=== PATIENT | female | born 1960 | race Two or more races ===

== ENCOUNTER → 2018-04-12 | Outpatient (CLI) | payer OTHER ==
[2015-07-12 21:07] VITALS: BP 150/93
[~2018-04-12] MED LIST: CITA20TA6 PO; HYDR-3164 PO; LISI1TAB3 PO; METH4TAB2 PO; NAPR220T70 PO
--- NOTE | 2018-04-12 13:50 | RAD ---
Indication: Acute bilateral low back pain without sciatica. TECHNIQUE: 3 views of the lumbar spine COMPARISON: None FINDINGS: The lumbar spine is in normal anatomic alignment. 6 lumbar vertebral bodies suggesting transitional anatomy with lumbarization of S1. No compression deformities. Intervertebral disc space narrowing seen at L5-S1. Lower lumbar spine facet arthropathy. SI joints within normal limits. IMPRESSION: 1. Transitional anatomy with lumbarization of S1. 2. Mild multilevel degenerative disc disease with moderate disease at L5-S1 and lower lumbar spine facet arthropathy. Electronically signed by: Chemo Tomlin DO (04/12/2018 1:47 PM) [id number]
== END | disposition home or self-care (01) ==
LOC: RAD 13:04
PROVIDERS: ATTEND Nurse Practitioner Gerontology
DX: M51.37 Other intervertebral disc degeneration, lumbosacral region (principal); M48.07 Spinal stenosis, lumbosacral region; M12.88 Other specific arthropathies, not elsewhere classified, other specified site
CPT/HCPCS: 72100

== ENCOUNTER → 2018-05-16 | Outpatient (CLI) | payer OTHER ==
[2015-07-12 21:07] VITALS: BP 150/93
--- NOTE | 2018-05-16 17:27 | KCIC ---
Bilateral digital screening mammograms: Reason for examination: Routine screening. Comparison is made to previous studies dated 02/22/2014 and 12/29/2012. Interpretation was made with the benefit of CAD. The skin and nipples show no abnormalities. No abnormal axillary lymph nodes are seen. The breast parenchyma shows scattered fibroglandular density. (Breast density: Category B.) There are no dominant masses, suspicious calcifications or architectural distortions. A few scattered benign calcifications are present. Impression: No evidence of malignancy. Recommend routine screening. BI-RADS category 2: Benign "Our facility is accredited by the [employer] Mammography Program." This patient's information has been entered into a reminder system for the patient to be notified with the results of her examination and a target date for the next mammogram. Electronically signed by: Shelby Guerrero MD (05/16/2018 5:24 PM) [id number]
== END | disposition home or self-care (01) ==
LOC: KCIC MAMMO 13:06
PROVIDERS: ATTEND Family Medicine
DX: Z12.31 Encounter for screening mammogram for malignant neoplasm of breast (principal); R92.8 Other abnormal and inconclusive findings on diagnostic imaging of breast
CPT/HCPCS: 77067

== ENCOUNTER → 2018-08-28 | Outpatient (CLI) | payer OTHER ==
[2015-07-12 21:07] VITALS: BP 150/93
--- NOTE | 2018-08-28 17:04 | KCIC ---
3 view study of the right ankle Clinical indications: Right ankle pain after injury. FINDINGS: Lateral soft tissue swelling is seen. There is a small avulsion fracture of the distal fibular epiphysis. The mortise ankle joint is intact. Plantar spur of the calcaneus is seen. IMPRESSION: Small avulsion fracture of the distal right fibular epiphysis. Electronically signed by: Andrew Burnett MD (08/28/2018 5:01 PM) [id number]
== END | disposition home or self-care (01) ==
LOC: KCIC 11:39
PROVIDERS: ATTEND Nurse Practitioner Gerontology
DX: S82.832A Other fracture of upper and lower end of left fibula, initial encounter for closed fracture (principal); M77.31 Calcaneal spur, right foot; X58.XXXA Exposure to other specified factors, initial encounter; Y93.89 Activity, other specified; Y92.89 Other specified places as the place of occurrence of the external cause; Y99.8 Other external cause status
CPT/HCPCS: 73610

== ENCOUNTER → 2018-09-20 | Outpatient (CLI) | payer OTHER ==
[2015-07-12 21:07] VITALS: BP 150/93
--- NOTE | 2018-09-20 13:03 | KCIC ---
LUMBAR SPINE 2-3V 09/20/2018 12:00 AM Indication: Low back pain without sciatica COMPARISON: Lumbar spine radiograph April 12, 2018 TECHNIQUE: 3 views of the lumbar spine are provided. Findings: 5 nonrib-bearing lumbar type vertebral bodies are identified. There is minimal levoconvex curvature of the lumbar spine with apex levocurvature at L3-L4. There is minimal retrolisthesis of L2 on L3 and L3 on L4. There is mild disc height loss at L2-L3, stable with marginal osteophytosis and subcortical sclerosis. No acute fracture is identified. There is moderate to advanced facet arthropathy lower lumbar spine. There is moderate disc height loss at L5-S1 with cortical sclerosis. There is osseous neural foraminal stenosis at L4-L5 and L5-S1. Nonobstructive bowel gas pattern. Atherosclerotic changes of the abdominal aorta are present. Impression: Mild to moderate lumbar spondylosis. Minimal retrolisthesis of L2 on L3 and L3 on L4, stable. Electronically signed by: Carlee Graham MD (09/20/2018 1:00 PM) [id number]
== END | disposition home or self-care (01) ==
LOC: KCIC 11:08
PROVIDERS: ATTEND Nurse Practitioner Gerontology
DX: M47.816 Spondylosis without myelopathy or radiculopathy, lumbar region (principal); M48.07 Spinal stenosis, lumbosacral region; M53.86 Other specified dorsopathies, lumbar region; M25.78 Osteophyte, vertebrae; M12.88 Other specific arthropathies, not elsewhere classified, other specified site; I70.0 Atherosclerosis of aorta
CPT/HCPCS: 72100

== ENCOUNTER → 2018-11-07 | Outpatient (CLI) | payer OTHER ==
[2015-07-12 21:07] VITALS: BP 150/93
[~2018-11-07] MED LIST changes: +LISI1TAB23 PO; -LISI1TAB3 PO
[2018-11-07 13:41] LABS: ALBUMIN 3.6 g/dL (3.4-5.0); DIRECT BILIRUBIN 0.1 mg/dL (0.0-0.2); TOTAL BILIRUBIN 0.3 mg/dL (0.2-1.0); TOTAL PROTEIN 7.5 g/dL (6.4-8.2)
== END | disposition home or self-care (01) ==
LOC: LAB 12:22
PROVIDERS: ATTEND Podiatrist Foot & Ankle Surgery
DX: B35.1 Tinea unguium (principal)
CPT/HCPCS: 36415; 80076

== ENCOUNTER → 2019-11-21 | Outpatient (CLI) | payer OTHER ==
[2015-07-12 21:07] VITALS: BP 150/93
[2019-11-21 10:27] LABS: BASO % 0 % (0-3); EOS # 0.2 x10^3/uL (0.0-0.7); EOS % 3 % (0-3); HEMATOCRIT 44.5 % (36.0-47.0); HEMOGLOBIN 15.3 g/dL (12.0-15.5); LYMPH # 2.1 x10^3/uL (1.0-4.8); LYMPH % 28 % (24-48); MEAN CORPUSCULAR HEMOGLOBIN 29 pg (25-35); MEAN CORPUSCULAR HGB CONC 35 g/dL (31-37); MEAN CORPUSCULAR VOLUME 85 fL (79-100); MONO # 0.5 x10^3/uL (0.0-1.1); MONO % 7 % (0-9); NEUT # 4.7 x10^3/uL (1.8-7.7); NEUT % 62 % (31-73); PLATELET COUNT 201 x10^3/uL (140-400); RED BLOOD COUNT 5.21 x10^6/uL (3.50-5.40); WHITE BLOOD COUNT 7.6 x10^3/uL (4.0-11.0)
[2019-11-21 10:33] LABS: ALBUMIN 3.7 g/dL (3.4-5.0); ALBUMIN/GLOBULIN RATIO 0.9 (1.0-1.7); CALCIUM 9.5 mg/dL (8.5-10.1); CREATININE 0.8 mg/dL (0.6-1.0); GFR 73.2; POTASSIUM 4.3 mmol/L (3.5-5.1); TOTAL BILIRUBIN 0.4 mg/dL (0.2-1.0); TOTAL PROTEIN 7.9 g/dL (6.4-8.2)
[2019-11-21 10:34] LABS: CHOLESTEROL/HDL RATIO 5.4
--- NOTE | 2019-11-21 11:58 | RAD ---
EXAM: AP and lateral views of the left knee DATE: 11/21/2019 12:00 AM INDICATION: Reason: LEFT KNEE PAIN. / Spl. Instructions: / History: COMPARISON: No Prior FINDINGS: AP lateral views of the left knee were submitted for evaluation. No acute fracture association. Mild decreased bone mineral density. No joint effusion. Tricompartmental osteophytes with mild medial compartment joint space narrowing. IMPRESSION: 1. No evidence for acute fracture or dislocation. 2. Tricompartmental degenerative changes. Electronically signed by: John Fuentes MD (11/21/2019 11:55 AM) [id number]
[2019-11-24 02:08] LABS: HEMOGLOBIN A1C 6.7 % (4.8-5.6)
== END ==
LOC: LAB 09:40
PROVIDERS: ATTEND Family Medicine
DX: Z13.220 Encounter for screening for lipoid disorders (principal); F41.1 Generalized anxiety disorder; M17.12 Unilateral primary osteoarthritis, left knee; M25.762 Osteophyte, left knee
CPT/HCPCS: 36415; 73560; 80053; 80061; 83036; 85025; 86140

== ENCOUNTER → 2020-01-17 | Outpatient (CLI) | payer OTHER ==
[2015-07-12 21:07] VITALS: BP 150/93
--- NOTE | 2020-01-18 15:36 | KCIC ---
BILATERAL SCREENING MAMMOGRAM History: Routine screening. Comparison: Bilateral mammogram May 16. Technique: Routine bilateral digital mammogram views were obtained. Findings: Breast Tissue Density B : There are scattered areas of fibroglandular density. A few benign calcifications are noted bilaterally. There are no dominant masses, suspicious microcalcifications or architectural distortion. IMPRESSION: No mammographic evidence of malignancy. Recommend routine screening. BI-RADS category 2: Benign findings. The images were reviewed with computer aided detection. Patient information is entered into the reminder system with a target due date for the next screening mammogram. Mammography is the most sensitive method for finding small breast cancers, but it does not detect the m all and is not a substitute for careful clinical examination. A negative mammogram does not negate a clinically suspicious finding and should not result in delay in biopsying a clinically suspicious a bnormality. "Our facility is accredited by the [employer] Mammography Program." Electronically signed by: Garth Saavedra MD (01/18/2020 3:34 PM) [id number]
== END ==
LOC: KCIC MAMMO 10:05
PROVIDERS: ATTEND Family Medicine
DX: Z12.31 Encounter for screening mammogram for malignant neoplasm of breast (principal)
CPT/HCPCS: 77067

== ENCOUNTER → 2020-08-01 | Outpatient (CLI) | payer OTHER ==
[2015-07-12 21:07] VITALS: BP 150/93
--- NOTE | 2020-08-02 12:13 | CARD ---
MR#: [id number] Date of Study: 08/01/2020 Ordering Physician: CARYL SHEPPARD, Referring Physician: Jorge MUKHERJEE: Fadi Hernandez RUST APPROVED REPORT EXAM: Two-dimensional and M-mode echocardiogram with Doppler and color Doppler. Other Information Quality : AverageHR: 68bpm Rhythm : NSR INDICATION Palpitations 2D DIMENSIONS Left Atrium(2D)4.3 (1.6-4.0cm)IVSd1.1 (0.7-1.1cm) Aortic Root(2D)2.6 (2.0-3.7cm)LVDd4.3 (3.9-5.9cm) LVOT Diameter2.1 (1.8-2.4cm)PWd1.0 (0.7-1.1cm) LVDs2.7 (2.5-4.0cm)FS (%) 36.2 % SV53.8 mlLVEF(%)66.2 (>50%) Aortic Valve AoV Peak Rancho.156.4cm/sAoV VTI33.7cm AO Peak GR.9.8mmHgLVOT Peak Rancho.121.7cm/s LVOT VTI 26.83cmAO Mean GR.6mmHg HOLLY (VMAX)2.57ea1ABL (VTI)2.75cm2 Mitral Valve MV E Wgqqcpby50.6cm/sMV DECEL [id number] MV A Riuximri830.1cm/sMV [id number] E/A Ratio0.8MVA (PHT)3.83cm2 TDI E/Lateral E'9.5E/Medial E'11.7 Pulmonary Valve PV Peak Tqtpfgta30.4cm/sPV Peak Grad.3mmHg Tricuspid Valve TR P. Puucqzkz210xe/sTR Peak Gr.27mmHg LEFT VENTRICLE The left ventricle is normal size. There is normal left ventricular wall thickness. The left ventricu lar systolic function is normal. The ejection fraction is 60-65%. There is normal LV segmental wall m otion. Transmitral Doppler flow pattern is Grade I-abnormal relaxation pattern. No left ventricle thr ombus noted on this study. There is no ventricular septal defect visualized. There is no left ventric ular aneurysm. RIGHT VENTRICLE The right ventricle is normal size. There is normal right ventricular wall thickness. The right ventr icular systolic function is normal. ATRIA The left atrium is moderately dilated. The right atrium size is normal. The interatrial septum is int act with no evidence for an atrial septal defect or patent foramen ovale as noted on 2-D or Doppler i maging. AORTIC VALVE The aortic valve is normal in structure and function. Doppler and Color Flow revealed no significant aortic regurgitation. There is no significant aortic valvular stenosis. There is no aortic valvular v egetation. MITRAL VALVE The mitral valve is normal in structure and function. There is no evidence of mitral valve prolapse. There is no mitral valve stenosis. Doppler and Color-flow revealed trace to mild mitral regurgitation . TRICUSPID VALVE The tricuspid valve is normal in structure and function. Doppler and Color Flow revealed trace tricus pid regurgitation. There is no tricuspid valve prolapse or vegetation. There is no tricuspid valve st enosis. PULMONIC VALVE The pulmonary valve is normal in structure and function. Doppler and Color Flow revealed no pulmonic valvular regurgitation. There is no pulmonic valvular stenosis. GREAT VESSELS The aortic root is normal in size. The ascending aorta is normal in size. The pulmonary artery is nor mal. The IVC is normal in size and collapses >50% with inspiration. PERICARDIAL EFFUSION There is no pleural effusion. There is no evidence of significant pericardial effusion. Critical Notification Critical Value: No <Conclusion> The left ventricular systolic function is normal. The ejection fraction is 60-65%. There is normal LV segmental wall motion. Transmitral Doppler flow pattern is Grade I-abnormal relaxation pattern. Trace to mild mitral regurgitation. Trace tricuspid regurgitation. There is no evidence of significant pericardial effusion. Signed by : Caryl Sheppard, Electronically Approved : 08/02/2020 12:12:46
== END ==
LOC: ECHO 12:20
PROVIDERS: ATTEND Internal Medicine Cardiovascular Disease
DX: I34.0 Nonrheumatic mitral (valve) insufficiency (principal); R00.2 Palpitations
CPT/HCPCS: 93306